=== PATIENT | male | born 1945 ===

== ENCOUNTER 2016-08-26 14:20 | Emergency (ER) | payer OTHER ==
[~2016-08-26] VITALS: Ht 167.6 cm; Wt 79.5 kg
[2016-08-26 14:36] VITALS: BP 94/58; PULSE 74; RESP 12; O2SAT 98
[2016-08-26] MEDS ORDERED: 0.9% Sodium Chloride 1,000 ML IV ONE (15:30)
--- NOTE | 2016-08-26 15:31 | ED.REPORT ---
HPI-Extremity Problem Lower Date of Service Aug 26, 2016 ED Provider: Mitch Vasquez MD Pt is a 70 y/o male w/ a hx of NIDDM, neuropathy, prior substance abuse on Suboxone, HTN, hyperlipidemia, presenting to the ED c/o bilateral pedal edema onset today. He began to notice ulcers about his toes 3 weeks ago which he believes are caused by skin cracking and poor footwear. Today, he began to experience bilateral pedal edema, left first and then right, with worse swelling on the right. He states the ulcers are getting worse and he has been taking antibiotics and Tylenol for relief. Today, he was at his PCP appointment at the [place] who thought he appeared to be over-sedated from Suboxone use and therefore was sent here. He takes 1.5 strips of 8 mg Suboxone which is a dose increase from 4 days ago. His last dose was this morning at 11:00. He also had a ground level fall yesterday with a head injury for which he was seen at [facility] with a negative CT head. Pt denies SOB, fever. He was also started on Gabapentin at the same time as the Suboxone dose increase. Nursing Notes Stated Complaint: ulcers both feet Chief Complaint: General Complaint Nursing Notes Reviewed: Yes (tarpipe, Rent Here not reconciled) Allergies: Coded Allergies: Penicillins (Verified Allergy, Unknown, Hives, 11/20/13) Scheduled Furosemide (Furosemide) 20 Mg Tab 20 MG PO DAILY General Time Seen by MD: 15:17 Chief Complaint Other (edema) Hx Obtained From: Patient Arrived By: Walk-in Onset Occurred: 9 - 12 hours ago Symptom Duration: Since onset Location: : Foot left: Foot right Quality: Painful Severity: Current: Moderate Severity: Maximum: Moderate Recent Healthcare: Recent doctor visit, Previous diagnosis Past Medical History Past Medical History CAD s/p CABG x 3 vessels NIDDM Substance abuse (opiates) on suboxone Hypertension Hyperlipidemia Asthma Hep C Past Surgical History nasal surgery, prostate abscess surgery Reports: CABG Family History n/a Smoking History Never Smoker Social History Alcohol Use: Denies alcohol use Drug Use: Denies drug use Occupation Retired Ambulatory Status Independent Review of Systems Constitutional: Reports: Fatigue, Denies: Chills, Fever Musculoskeletal: Reports: Extremity pain, Extremity swelling Neurologic: Denies: Headache Complete sys rev & neg: except as marked. Respiratory: Denies: Non-productive cough, Shortness of breath Physical Exam Initial Vital Signs Vital Signs (First) Date Time Temp Pulse Resp B/P Pulse Ox O2 Delivery O2 Flow Rate FiO2 08/26/16 14:36 36.6 74 12 94/58 98 Room Air Initial VS: Reviewed, Vital signs abnormal (hypotension) Head / Eyes: Atraumatic, Normocephalic, PERRL ENT: Mucous membranes moist, Conjunctiva normal, No scleral icterus Neck: Supple, Full range of motion Respiratory: Breath sounds normal, Clear to auscultation, No respiratory distress Cardiovascular: Regular rate & rhythm, Heart sounds normal, Intact distal pulses Abdomen / GI: Soft, No distention Skin: Warm, Dry, No cyanosis Psychiatric: Mood/affect normal, Behavior normal, Normal thought content Lower Extremity / Pelvis / MS: No deformity, Neurologic intact, Vascular intact 2+ edema bilaterally, R greater than L Ankle / Foot: No deformity, Neurologic intact, Vascular intact Ulcer over 5th metatarsal of both feet No clinical signs of infection Diabetic neuropathy present General/Constitutional: Awake, Alert, No acute distress, Cooperative, Not toxic appearing Alertness: Negative: Sedated Neurologic: Oriented X3, Speech NL, No motor deficits No clinical sedation evident Upper Extremity / MS: No deformity, Neurologic intact, Vascular intact Acute scarring over the left AC No track rodriguez Interpretation & Diagnostics Lab Results Interpretation Result Diagram: 08/26/16 1630 08/26/16 1630 Test 08/26/16 16:07 08/26/16 16:09 08/26/16 16:30 Lactic Acid Level 1.5mmol/L (0.4-2.0) Urine Color Yellow (YELLOW) Urine Appearance Clear (CLEAR,HAZY) Urine pH 5.0 (5.0-8.0) Urine Specific [place] 1.030 (1.003-1.035) Urine Protein 100mg/dL (NEG,TRACE) Urine Glucose (UA) 250mg/dL (NEGATIVE) Urine Ketones Negativemg/dL (NEGATIVE) Urine Occult Blood Negative (NEGATIVE) Urine Nitrite Negative (NEGATIVE) Urine Bilirubin Negative (NEGATIVE) Urine Urobilinogen Normalmg/dL (NORMAL) Urine Leukocyte Esterase Negative (NEGATIVE) Urine RBC 0-2/hpf (0-2) Urine WBC 0-5/hpf (0-5) Urine Epithelial Cells None/hpf (NONE-MOD) Urine Crystals None seen (NONE SEEN) Urine Bacteria None/hpf (NONE-FEW) Urine Hyaline Casts None/lpf (NONE) Urine Granular Casts None seen (NONE SEEN) Urine Waxy Casts None seen (NONE SEEN) Urine Red Blood Cell Casts None seen (NONE SEEN) Urine White Blood Cell Casts None seen (NONE SEEN) Urine Mucus None seen (None Seen) Urine Trichomonas None seen (NONE SEEN) Urine Yeast None (NONE SEEN) Urinalysis Comment None Urine Culture Reflexed Not indicated White Blood Count 7.8th/mm3 (3.8-10.1) Red Blood Count 4.40mil/mm3 (4.40-5.80) Hemoglobin 12.6g/dL (13.8-17.2) Hematocrit 38.6% (41.0-50.0) Mean Corpuscular Volume 87.7fL (81-100) Mean Corpuscular Hemoglobin 28.6pg (27.0-35.0) Mean Corpuscular Hemoglobin Concent 32.6% (32.0-37.0) Red Cell Distribution Width 14.4% (12.3-15.4) Platelet Count 238bil/L (150-400) Neutrophils (%) (Auto) 61.1% (40-74) Lymphocytes (%) (Auto) 24.9% (14-46) Monocytes (%) (Auto) 8.6% (4-12) Eosinophils (%) (Auto) 4.5% (0-5) Basophils (%) (Auto) 0.6% (0-3) Sodium Level 136mEq/L (134-144) Potassium Level 4.4mEq/L (3.5-5.2) Chloride Level 101mEq/L (97-108) Carbon Dioxide Level 21mmol/L (18-29) Blood Urea Nitrogen 30mg/dL (8-27) Creatinine 1.10mg/dL (0.76-1.27) Estimat Glomerular Filtration Rate 70mL/min (>59) Glucose Level 70mg/dL (60-99) Calcium Level 9.5mg/dL (8.5-10.1) Total Bilirubin 0.2mg/dL (0.0-1.2) Aspartate Amino Transf (AST/SGOT) 16U/L (0-50) Alanine Aminotransferase (ALT/SGPT) 11U/L (0-44) Alkaline Phosphatase 81U/L (25-160) Pro-B-Type Natriuretic Peptide 139.3pg/mL (0-376) Total Protein 7.7g/dL (6.4-8.4) Albumin 4.0g/dL (3.4-5.0) Procalcitonin 0.07ng/mL (0.00-0.08) Lab Results Interpretation: CBC normal CMP normal Lactic acid normal UA negative BMP was negative US Focused Lower Ext Venous Negative DVT Left femoral arterial disease Exam Performed by: Allied health pract Exam Interpreted by: Allied health pract Indication: Leg pain right, Leg pain left, Leg swelling right, Leg swelling left Re-Eval/Medical Decision Med Decision/Clinical Course This is a 70-year-old male whose chart indicates he is complaining of foot ulcers-however it turns out the patient was actually sent here with concern for overmedication/sedation from the [place] clinic. Patient had routine follow-up at the [facility] today, and apparently acted sedated during the visit-and has been noted the patient recently had a Suboxone increased as of of last week , and also recently had gabapentin added to his medical regimen. He was then sent to the ED for further evaluation. I evaluated him, the patient is wide awake, alert without clinical signs of sedation or respiratory depression. Did have a fall in recent weeks, the [place] clinic said it was yesterday the day before, but records from [facility] indicates the fall was August 17 and it was concern at that time that gabapentin may cause drowsiness or dizziness. On exam the patient has edema both lower extremities which she says is worse than baseline, and he has ulcerations over the fifth metatarsal which I suspect is from his foot wear, which we discussed. However I do not appreciate clinical signs of active infection of the feet, and he is already on antibiotics. Laboratoriess were obtained and demonstrated normal renal and hepatic function. Duplex ultrasound of legs was negative for DVTs I felt the right leg was larger than the left. Incidental finding of vascular disease in the left femoral artery was noted and I recommended full strength aspirin, and follow-up with [facility] as an outpatient for this.. She was in the department for a number of hours remained clinically stable without evidence of oversedation at this time. However [facility] and acting [facility]ated his itself fairly diagnostic, and I have expressed the concern. My recommendation was to back off of Suboxone to the previous dose that he been taking before . That he continue the gabapentin. And he continue his other medications. For his edema given his normal labs have written for low-dose Lasix. And the aspirin and [facility]. Patient is discharged in stable condition. Source of Hx: Old records Re-Evaluation/Progress : Time of Eval: 18:52 Re-Evaluation/Progress Note: Pt rechecked. Pain improved. BP 110/65. Informed pt of plan for treatment. Pt understands and agrees with plan for treatment. F/U instructions and RTER warnings given. All questions addressed. Counseled Regarding: Diagnosis, Lab results, Need for follow-up, When/why to return to ED Discharge & Departure Impression: Primary Impression: Ulcers of both lower extremities Additional Impressions: Adverse effects of medication Encounter type: initial encounter Qualified Code: T88.7XXA - Unspecified adverse effect of drug or medicament, initial encounter Edema Edema type: unspecified Qualified Code: R60.9 - Edema, unspecified Disposition: Home Discharge Condition All VS Reviewed: Yes Condition: Stable Additional Instructions: 1. Your blood tests were normal - no markers of kidney problems, heart failure, or worsening infection. 2. Continue and complete the antibiotics you were given from [facility]. 3. You had an ultrasound which did not show any signs of DVT in the legs, but you do have some vascular disease of the left femoral artery. Take a full strength aspirin daily - and you should follow up with the [place] for this. 4. You were sent here due to concerns at the [place] that you are overmedicated given your increased dose of suboxone and newly prescribed gabapentin. This may have contributed to your recent fall. You were alert without signs of oversedation in the ED, but if the [facility] noted that you were [facility] it does suggest that you are on too much medication. I recommend reducing your suboxone to the original dose before the increase this past , and I would continue your gabapentin. 5. To help with the swelling in the feet/legs, I recommend taking furosemide 20mg once a day for the next 10 days. 6. Return again if new or worsening symptoms. 7. Schedule another follow up with your doctors at the [place]. Referrals: WILLIAM SMALLWOOD MD (PCP) Carlee Attestation Portions of this note were transcribed by Eric White. I, Dr. Vasquez, personally performed the history, physical exam and medical decision-making; I reviewed and confirmed the accuracy of the information in the transcribed note. Signed by Carlee Wood, 08/26/16 - [id number] copies to: WILLIAM SMALLWOOD MD, Matthew F MD Aug 26, 2016 15:31 ERIC WHITE Aug 26, 2016 15:37
[2016-08-26 16:04] VITALS: BP 91/51; PULSE 71
[2016-08-26 16:28] LABS: APPEARANCE,URINE CLEAR (CLEAR,HAZY); COLOR,URINE YELLOW (YELLOW); OCCULT BLOOD,URINE NEGATIVE (NEGATIVE)
[2016-08-26 16:29] LABS: UROBILINOGEN,URINE NORMAL (NORMAL)
[2016-08-26 16:48] LABS: BASOPHILS % (AUTO) 0.6 % (0-3); EOSINOPHILS % (AUTO) 4.5 % (0-5); MONOCYTES % (AUTO) 8.6 % (4-12); Mean Corpuscular Hemoglobin 28.6 pg (27.0-35.0); Mean Corpuscular Volume 87.7 fL (81-100); NEUTROPHILS % (AUTO) 61.1 % (40-74); Platelet Count 238 bil/L (150-400)
[2016-08-26 18:50] VITALS: BP 110/65; PULSE 92; RESP 18; O2SAT 98
[2016-08-26] MEDS ORDERED: FUR20 PO (19:09)
[2016-08-26 21:07] VITALS: BP 114/68; PULSE 65; O2SAT 97
--- NOTE | 2016-08-26 21:28 | DRSVH ---
PROCEDURE: US VENOUS LEG DUPLEX BILATERAL INDICATIONS: swelling r>L ro DVT TECHNIQUE: Real-time imaging, as well as color and pulse Doppler interrogation, were performed of the deep veins of both legs from the inguinal ligament to the popliteal fossa. COMPARISON: None. FINDINGS: The deep veins are normally compressible, and free of intraluminal thrombus. Color and pu lse Doppler demonstrate normal phasic intravascular flow. There is normal augmentation response to d istal compression maneuver. It is noted that there is a short segment of the left superficial femoral artery which demonstrated a focus of nonocclusive thrombus. IMPRESSION: 1. No evidence of deep venous thrombosis. 2. Short segment of nonocclusive thrombus within the left superficial femoral artery. Dictated by: Radha Gutierrez M.D. on 08/26/2016 at 21:25 Approved by: Radha Gutierrez M.D. on 08/26/2016 at 21:26
== END 2016-08-26 21:08 | disposition home or self-care (01) ==
LOC: SED 14:20
DX: R60.0 Localized edema (principal); T88.7XXA Unspecified adverse effect of drug or medicament, initial encounter; L97.519 Non-pressure chronic ulcer of other part of right foot with unspecified severity; L97.529 Non-pressure chronic ulcer of other part of left foot with unspecified severity; X58.XXXA Exposure to other specified factors, initial encounter; Y93.89 Activity, other specified; Y99.8 Other external cause status; Y92.89 Other specified places as the place of occurrence of the external cause; I25.10 Atherosclerotic heart disease of native coronary artery without angina pectoris; I10 Essential (primary) hypertension; E78.5 Hyperlipidemia, unspecified; J45.909 Unspecified asthma, uncomplicated; E11.40 Type 2 diabetes mellitus with diabetic neuropathy, unspecified; F11.21 Opioid dependence, in remission; Z95.1 Presence of aortocoronary bypass graft